=== PATIENT | female | born 1960 | race Caucasian/White ===

== ENCOUNTER 2018-09-08 21:45 | Emergency (ER) | payer OTHER ==
[~2018-09-08] VITALS: Ht 165.1 cm; Wt 61.0 kg
[2018-09-08 21:59] VITALS: BP 119/56
--- NOTE | 2018-09-08 23:30 | NUR ---
REPORT RECEIVED FROM ANNA MADERA. ASSUMED CARE OF PT. WAITING FOR SURGEON TO SEE PT,FAMILY AT BEDSIDE. WILL CONTINUE TO MONITOR
--- NOTE | 2018-09-09 00:23 | NUR ---
DR. HAMILTON AT BEDSIDE.
--- NOTE | 2018-09-09 00:52 | NUR ---
Patient/Caregiver given discharge instructions and they have confirmed that they understand the instructions. Patient ambulatory with steady gait.
== END 2018-09-09 01:51 | disposition home or self-care (01) ==
LOC: ED 09-09 00:31
DX: S02.40EA Zygomatic fracture, right side, initial encounter for closed fracture (principal); F17.200 Nicotine dependence, unspecified, uncomplicated; W01.0XXA Fall on same level from slipping, tripping and stumbling without subsequent striking against object, initial encounter; Y93.89 Activity, other specified; Y92.009 Unspecified place in unspecified non-institutional (private) residence as the place of occurrence of the external cause; Y99.8 Other external cause status
CPT/HCPCS: 70450; 70486; 99284

== ENCOUNTER 2018-09-13 06:37 | Day surgery (SDC) | payer OTHER ==
[~2018-09-13] VITALS: Ht 160 cm; Wt 60.9 kg
[2018-09-13] MEDS ORDERED: ACETAMINOPHEN 500 MG TABLET PO ONE (07:30)
[2018-09-13] MEDS ORDERED: GABAPENTIN 300 MG CAPSULE PO ONE (07:30)
[2018-09-13] MEDS ORDERED: LACTATED RINGERS 1,000 ML IV SCH (07:44)
[2018-09-13 07:48] VITALS: BP 125/84
[2018-09-13] MEDS ORDERED: MIDAZOLAM 1 MG/ML, 2ML ONE (07:53)
[2018-09-13] MEDS ORDERED: FENTANYL PF 250 MCG/5ML ONE (07:53)
[2018-09-13] MEDS ORDERED: GLUC-34 PEG (08:02)
[2018-09-13] MEDS ORDERED: BACITRACIN ZINC OINT 500U/GM, 0.9 GM ONE (10:23)
[2018-09-13] MEDS ORDERED: EPINEPHRINE 1 MG/ML, 1ML ONE (10:24)
[2018-09-13] MEDS ORDERED: LIDOCAINE 1%, 20ML ONE (10:24)
[2018-09-13] MEDS ORDERED: MUPIROCIN OINT 2%, 22GM ONE (10:25)
[2018-09-13] MEDS ORDERED: ROCURONIUM 10 MG/ML,10ML ONE (10:54)
[2018-09-13] MEDS ORDERED: SUCCINYLCHOLINE 20 MG/ML, 10ML ONE (10:54)
[2018-09-13] MEDS ORDERED: LIDOCAINE 1%-EPI 1:100K, 30ML INFIL ONE (11:11)
[2018-09-13] MEDS ORDERED: CEFAZOLIN 1,000 MG ONE (11:19)
[2018-09-13] MEDS ORDERED: ONDANSETRON 2MG/ML, 2ML ONE (11:19)
[2018-09-13] MEDS ORDERED: DEXAMETHASONE 4 MG/ML, 1ML ONE (11:19)
[2018-09-13] MEDS ORDERED: PROPOFOL 10 MG/ML, 20ML ONE (11:19)
[2018-09-13] MEDS ORDERED: KETOROLAC 30 MG/1 ML ONE (11:21)
[2018-09-13] MEDS ORDERED: ALBUTEROL HFA 90 MCG/SPRAY ONE (11:21)
[2018-09-13] MEDS ORDERED: MUPIROCIN OINT 2%, 22GM TP ONE (11:23)
[2018-09-13] MEDS ORDERED: LIDOCAINE-MPF 2% ,5ML ONE ×2 (11:28)
[2018-09-13] MEDS ORDERED: ONDANSETRON 2MG/ML, 2ML IV PRN (11:30)
[2018-09-13] MEDS ORDERED: OXYcodone 5 MG/5 ML ORAL.SOL UDC PO PRN (11:30)
[2018-09-13] MEDS ORDERED: SCOPOLAMINE PATCH, 1.5MG PATCH.TD72 TD PRN (11:30)
[2018-09-13] MEDS ORDERED: ALBUTEROL/IPRATROPIUM 2.5MG/0.5MG, 3 ML NPPB PRN (11:30)
[2018-09-13] MEDS ORDERED: PROMETHAZINE 25 MG/ML, 1ML IV PRN (11:30)
[2018-09-13] MEDS ORDERED: MIDAZOLAM 1 MG/ML, 2ML IV PRN (11:30)
[2018-09-13] MEDS ORDERED: MEPERIDINE/PF 25MG/0.5ML IVPush PRN (11:30)
[2018-09-13] MEDS ORDERED: FENTANYL PF 100 MCG/2ML IV PRN (11:30)
[2018-09-13] MEDS ORDERED: HYDROmorphone 2 MG/ML, 1ML IVPush PRN (11:30)
[2018-09-13] MEDS ORDERED: OXYcodone 5 MG/5 ML ORAL.SOL UDC ONE (11:58)
== END 2018-09-13 13:30 | disposition home or self-care (01) ==
LOC: OUT 06:37
PROVIDERS: ATTEND Otolaryngology Facial Plastic Surgery
DX: S02.40EA Zygomatic fracture, right side, initial encounter for closed fracture (principal); W19.XXXA Unspecified fall, initial encounter; Y93.89 Activity, other specified; Y92.89 Other specified places as the place of occurrence of the external cause; Y99.8 Other external cause status; Z88.1 Allergy status to other antibiotic agents
CPT/HCPCS: 21365; J0171; J0330; J0690; J1100; J1885; J2250; J2405; J2704; J3010; J3490; J7120